=== PATIENT | male | born 1955 ===

== ENCOUNTER 2018-03-17 09:35 | Outpatient (CLI) | payer OTHER ==
[~2018-03-17] VITALS: Ht 172.7 cm; Wt 113.4 kg
== END 2018-03-17 09:50 | disposition home or self-care (01) ==
LOC: OFIC 805 09:35
DX: G47.33 Obstructive sleep apnea (adult) (pediatric) (principal); J30.89 Other allergic rhinitis; H93.8X3 Other specified disorders of ear, bilateral

== ENCOUNTER 2025-02-26 08:59 | Outpatient (CLI) | payer OTHER | END 2025-02-26 09:01 | disposition home or self-care (01) | LOC: SONOGRAMA 08:59 | PROVIDERS: ATTEND Pathology Anatomic Pathology | DX: D34 Benign neoplasm of thyroid gland (principal); E04.2 Nontoxic multinodular goiter ==